=== PATIENT | female | born 1935 | race Two or more races ===

== ENCOUNTER 2018-06-11 07:06 | Outpatient (CLI) | payer OTHER | END 2018-06-11 07:19 | disposition home or self-care (01) | LOC: TOM 07:06 | DX: K56.50 Intestinal adhesions [bands], unspecified as to partial versus complete obstruction (principal); K56.600 Partial intestinal obstruction, unspecified as to cause; Z12.11 Encounter for screening for malignant neoplasm of colon ==

== ENCOUNTER 2022-09-05 19:29 | Inpatient (IN) | payer OTHER ==
[~2022-09-05] VITALS: Ht 162.6 cm; Wt 453.6 kg
[2022-09-05] MEDS ORDERED: TOLTERODINE TART4 MG PO (20:40)
[2022-09-05] MEDS ORDERED: CLOPIDOGREL BIS75 MG PO (20:40)
[2022-09-05] MEDS ORDERED: NEURIN (20:41)
[2022-09-05] MEDS ORDERED: ELIQUIS5 MG PO (20:41)
[2022-09-05] MEDS ORDERED: ZETIA10 MG PO (20:41)
[2022-09-05] MEDS ORDERED: GLIMEPIRIDE4 M1 PO (20:42)
[2022-09-05] MEDS ORDERED: LEVOTHYROXINE100 MC1 PO (20:42)
[2022-09-05] MEDS ORDERED: GRALISE600 MG PO (20:42)
[2022-09-05] MEDS ORDERED: ATORVASTATIN CA40 MG PO (20:42)
[2022-09-09] MEDS ORDERED: ABANEU-SL TABL1 EACH (16:04)
[2022-09-09] MEDS ORDERED: GABAPENTIN100 M2 (16:05)
== END 2022-09-27 16:05 | disposition expired | DRG 4 ==
LOC: ER 19:29 → ICU 09-06 01:49 → ICU-2 09-06 01:49 → ICUI 09-06 17:00 → ICU 09-06 17:01
PROVIDERS: ADMIT Internal Medicine; ATTEND Internal Medicine
PROC: B020ZZZ Computerized Tomography (CT Scan) of Brain (ICD-10-PCS; 2022-09-05)
PROC: 5A1955Z Respiratory Ventilation, Greater than 96 Consecutive Hours (ICD-10-PCS; principal; 2022-09-06)
PROC: 0BH17EZ Insertion of Endotracheal Airway into Trachea, Via Natural or Artificial Opening (ICD-10-PCS; 2022-09-06)
PROC: 02HV33Z Insertion of Infusion Device into Superior Vena Cava, Percutaneous Approach (ICD-10-PCS; 2022-09-06)
PROC: BW21ZZZ Computerized Tomography (CT Scan) of Abdomen and Pelvis (ICD-10-PCS; 2022-09-06)
PROC: BW24ZZZ Computerized Tomography (CT Scan) of Chest and Abdomen (ICD-10-PCS; 2022-09-06)
PROC: B24BYZZ Ultrasonography of Heart with Aorta using Other Contrast (ICD-10-PCS; 2022-09-06)
PROC: BT43ZZZ Ultrasonography of Bilateral Kidneys (ICD-10-PCS; 2022-09-07)
PROC: 30243R1 Transfusion of Nonautologous Platelets into Central Vein, Percutaneous Approach (ICD-10-PCS; 2022-09-08)
PROC: 30243M1 Transfusion of Nonautologous Plasma Cryoprecipitate into Central Vein, Percutaneous Approach (ICD-10-PCS; 2022-09-09)
PROC: 8E0ZXY6 Isolation (ICD-10-PCS; 2022-09-10)
PROC: 30243N1 Transfusion of Nonautologous Red Blood Cells into Central Vein, Percutaneous Approach (ICD-10-PCS; 2022-09-11)
PROC: BW211ZZ Computerized Tomography (CT Scan) of Abdomen and Pelvis using Low Osmolar Contrast (ICD-10-PCS; 2022-09-14)
PROC: BW24ZZZ Computerized Tomography (CT Scan) of Chest and Abdomen (ICD-10-PCS; 2022-09-14)
PROC: 0B110F4 Bypass Trachea to Cutaneous with Tracheostomy Device, Open Approach (ICD-10-PCS; 2022-09-24)
PROC: 0DH60UZ Insertion of Feeding Device into Stomach, Open Approach (ICD-10-PCS; 2022-09-24)
PROC: BW24ZZZ Computerized Tomography (CT Scan) of Chest and Abdomen (ICD-10-PCS; 2022-09-25)
PROC: BW28ZZZ Computerized Tomography (CT Scan) of Head (ICD-10-PCS; 2022-09-25)
PROC: BW21ZZZ Computerized Tomography (CT Scan) of Abdomen and Pelvis (ICD-10-PCS; 2022-09-25)
PROC: 0W993ZZ Drainage of Right Pleural Cavity, Percutaneous Approach (ICD-10-PCS; 2022-09-27)
DX: A41.9 Sepsis, unspecified organism (principal); D65 Disseminated intravascular coagulation [defibrination syndrome]; J96.21 Acute and chronic respiratory failure with hypoxia; G92.8 Other toxic encephalopathy; R65.21 Severe sepsis with septic shock; J69.0 Pneumonitis due to inhalation of food and vomit; B37.1 Pulmonary candidiasis; I63.532 Cerebral infarction due to unspecified occlusion or stenosis of left posterior cerebral artery; N17.9 Acute kidney failure, unspecified; E87.0 Hyperosmolality and hypernatremia; I13.0 Hypertensive heart and chronic kidney disease with heart failure and stage 1 through stage 4 chronic kidney disease, or unspecified chronic kidney disease; A04.72 Enterocolitis due to Clostridium difficile, not specified as recurrent; J91.8 Pleural effusion in other conditions classified elsewhere; D64.89 Other specified anemias; Z66 Do not resuscitate; E11.65 Type 2 diabetes mellitus with hyperglycemia; E11.22 Type 2 diabetes mellitus with diabetic chronic kidney disease; E86.0 Dehydration; N30.81 Other cystitis with hematuria; N18.9 Chronic kidney disease, unspecified; I50.9 Heart failure, unspecified; E03.9 Hypothyroidism, unspecified; Z85.3 Personal history of malignant neoplasm of breast; Z79.84 Long term (current) use of oral hypoglycemic drugs